=== PATIENT | female | born 1960 | race Caucasian/White ===

== ENCOUNTER 2016-10-01 13:22 | Emergency (ER) | payer OTHER ==
[~2016-10-01] VITALS: Ht 165.1 cm; Wt 80.7 kg
[~2016-10-01 13:22] MED LIST: ERYTHROMYCIN5 MG/GM OPH; VOLTAREN-XR100 M1 PO
--- NOTE | 2016-10-01 14:41 | ED MVC/FALL/TRAUMA COMPLAINT ---
History of Present Illness General Chief Complaint: Lower Extremity Problems Stated Complaint: "I NEED A SHOT IN MY KNEE" RIGHT Source: patient Exam Limitations: no limitations Vital Signs & Intake/Output Vital Signs & Intake/Output Vital Signs Date Time Temp Pulse Resp B/P Pulse O2 O2 Flow FiO2 Ox Delivery Rate 10/01 1605 97.1 70 18 135/86 94 Room Air 10/01 1332 97.1 109 18 155/86 95 Room Air Allergies Coded Allergies: Penicillins (HIVES 10/01/16) Reconcile Medications Diclofenac Sodium 75 MG TABLET.DR 1 TAB PO BID PRN pain/swelling Tramadol HCl 50 MG TABLET 1-2 TAB PO Q6 PRN pain Triage Note: C/O RIGHT KNEE PAIN AFTER FALLING A FEW DAYS AGO. NO RELIEF WITH IBUPROFEN. PT STATES SHE FEELS PAIN WITH WALKING, NO SWELLING OR REDNESS NOTED. PT HAS DAVID BANDAGE ON Triage Nurses Notes Reviewed? yes HPI: Patient is a 56-year-old female presents complaining of right knee pain. Patient tripped and fell 2 days ago. Pain is moderate, worsens with movement and palpation, improves with David wrap around the right knee. Patient has been taking Motrin with mild improvement. Patient denies head injury, headache, neck pain, numbness. (NILAM REYES) Past History Travel History Traveled to [place] past 21 day No Medical History Any Pertinent Medical History? 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 No (NILAM REYES) Review of Systems Review of Systems Constitutional: Reports: no symptoms. Cardiovascular: Denies: chest pain. Gastrointestinal/Abdominal: Denies: abdominal pain. Musculoskeletal: Reports: see HPI. Denies: back pain, neck pain. Skin: Reports: no symptoms. Neurological/Psychological: Denies: headache, numbness, paresthesia. (NILAM REYES) Physical Exam Physical Exam General Appearance: well developed/nourished, alert, awake Head: atraumatic, normal appearance Eyes: Bilateral: normal appearance, PERRL, EOMI. Ears, Nose, Throat, Mouth: hearing grossly normal Neck: normal inspection, supple, full range of motion Respiratory: no respiratory distress Peripheral Pulses: 2+ popliteal (R), 2+ dorsalis pedis (R) Back: normal inspection, normal range of motion, no vertebral tenderness Extremities: mild tenderness right patella and right posterior knee. Full range of motion, joint stable. Neurologic/Psych: no motor/sensory deficits, awake, alert, oriented x 3, normal gait, normal mood/affect Skin: intact, normal color, warm/dry Core Measures ACS in differential dx? No Severe Sepsis Present: No Septic Shock Present: No (NILAM REYES) Progress Differential Diagnosis: sprain, strain, fracture, meniscus injury Plan of Care: Orders Procedure Date/time Status XRY-KNEE COMPLETE RIGHT 10/01 1445 Active Patient declined pain medication on initial exam. (NILAM REYES) Diagnostic Imaging: Viewed by Me: Radiology Read. Discussed w/RAD: Radiology Read. Radiology Impression: PATIENT: ARLINE MORATAYA PRESENT AGE: 56 PATIENT ACCOUNT NO: [id number] : 61 LOCATION: [facility] ORDERING PHYSICIAN: NILAM SLATER SERVICE DATE: 10/01/16 EXAM TYPE: RAD - XRY-KNEE COMPLETE RIGHT EXAMINATION: XR KNEE, RIGHT CLINICAL INFORMATION: Fall with right knee pain and tenderness. Evaluate for fracture. COMPARISON: Right knee 10/08/2015. TECHNIQUE: AP, bilateral oblique, and lateral views of the right knee. FINDINGS: There is no fracture or malalignment. There is a trace joint effusion. There are tiny marginal osteophytes involving the medial and patellofemoral compartments. There is mild medial compartment narrowing. There is no change in an irregular enthesophyte at the quadriceps insertion site on the patella. 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 Trace joint effusion. No acute fracture. 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 <Electronically signed in Other Vendor System> SIGNED BY: CHARIS LESTER MD 10/01/16 7251 (NILAM REYES) Departure Departure Time of Disposition: 1553 Disposition: HOME OR SELF CARE Condition: Stable Clinical Impression Primary Impression: Right knee sprain Referrals: YU ROSALES,DION (PCP/Family) GRAY REYEZ MD Additional Instructions: Rest, ice for 20 minutes 4-5 times a day, elevate, wear David wrap for support. Follow up with Dr. Reyez (orthopedist) if no improvement within 2-3 days. Return to the emergency department if numbness, weakness, pain control, worsening of symptoms. Departure Forms: Customer Survey General Discharge Information Prescriptions: Current Visit Scripts Diclofenac Sodium 1 TAB PO BID PRN pain/swelling #15 TAB Tramadol HCl 1-2 TAB PO Q6 PRN pain #15 TAB (NILAM REYES) PA/DISTRICT PLANT SUPERVISOR Co-Sign Statement Statement: ED Attending supervision documentation- [X] I saw and evaluated the patient. I have also reviewed all the pertinent lab results and diagnostic results. I agree with the findings and the plan of care as documented in the PA's/DISTRICT PLANT SUPERVISOR's documentation. [] I have reviewed the ED Record and agree with the PA's/DISTRICT PLANT SUPERVISOR's documentation. [] Additions or exceptions (if any) to the PAs/DISTRICT PLANT SUPERVISOR's note and plan are summarized below: [] (GINA MOISE DO)
--- NOTE | 2016-10-01 15:45 | RADIOLOGY REPORT ---
EXAMINATION: XR KNEE, RIGHT CLINICAL INFORMATION: Fall with right knee pain and tenderness. Evaluate for fracture. COMPARISON: Right knee 10/08/2015. TECHNIQUE: AP, bilateral oblique, and lateral views of the right knee. FINDINGS: There is no fracture or malalignment. There is a trace joint effusion. There are tiny marginal osteophytes involving the medial and patellofemoral compartments. There is mild medial compartment narrowing. There is no change in an irregular enthesophyte at the quadriceps insertion site on the patella. 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 Trace joint effusion. No acute fracture.
[2016-10-01] MEDS ORDERED: TRAMADOL HCL50 M1 PO (15:55)
[2016-10-01] MEDS ORDERED: DICLOFENAC SODI75 M2 PO (15:55)
[2016-10-01 16:05] VITALS: BP 135/86
== END 2016-10-01 16:06 ==
LOC: ERH 13:22
DX: S83.91XA Sprain of unspecified site of right knee, initial encounter (principal); W01.0XXA Fall on same level from slipping, tripping and stumbling without subsequent striking against object, initial encounter; Y93.9 Activity, unspecified; Y92.9 Unspecified place or not applicable
CPT/HCPCS: 73562-RT